=== PATIENT | female | born 1990 | race Caucasian/White ===

== ENCOUNTER → 2024-12-18 13:57 | Outpatient (REF) | payer BC, SELFPAY | LOC: PNTC 13:57 | PROVIDERS: ATTENDING PHYSICIAN Obstetrics & Gynecology | DX: O09.529 Supervision of elderly multigravida, unspecified trimester (principal); O34.219 Maternal care for unspecified type scar from previous cesarean delivery; Z36.0 Encounter for antenatal screening for chromosomal anomalies; Z36.82 Encounter for antenatal screening for nuchal translucency | CPT/HCPCS: 36415; 76801; 76813 ==

== ENCOUNTER → 2025-02-17 07:57 | Outpatient (REF) | payer BC, SELFPAY | LOC: PNTC 07:57 | PROVIDERS: ATTENDING PHYSICIAN Obstetrics & Gynecology | DX: O34.211 Maternal care for low transverse scar from previous cesarean delivery (principal); O09.529 Supervision of elderly multigravida, unspecified trimester | CPT/HCPCS: 76811; 76817 ==

== ENCOUNTER → 2025-03-24 16:16 | Outpatient (REF) | payer BC, SELFPAY ==
[2025-03-24 17:26] LABS: % Basophils 0.2 % (0-2); % Eosinophils 0.3 % (0-6); % Immature Granulocytes 0.7 % (0-0.5); % Lymphocytes 20.5 % (20.5-51.1); % Monocytes 6.2 % (1.7-9.3); % Neutrophils 72.1 % (42.2-75.2); Absolute Immature Granulocytes 0.1 10^3/uL (0-0.05); Absolute Monocytes 0.6 10^3/uL (0.1-0.6); Absolute Neutrophils 7.1 10^3/uL (1.4-6.5); Hematocrit 34.4 % (37.0-47.0); Hemoglobin 11.8 g/dL (12.0-16.0); Mean Corp Hgb Conc. 34.3 g/dL (33.0-37.0); Mean Corpuscular Hgb 29.6 pg (27.0-31.0); Mean Corpuscular Volume 86.2 fL (81.0-99.0); Mean Platelet Volume 9.3 fL (7.4-10.4); Nucleated Red Blood Cells % 0 %; Platelet Count 245 10^3/uL (130-400); Red Blood Cell Count 3.99 10^6/uL (4.20-5.40); White Blood Cell Count 9.8 10^3/uL (4.8-10.8)
== END ==
LOC: PNTC 16:16
PROVIDERS: ATTENDING PHYSICIAN Obstetrics & Gynecology; REFERRING PHYSICIAN Obstetrics & Gynecology
DX: O34.211 Maternal care for low transverse scar from previous cesarean delivery (principal); O09.529 Supervision of elderly multigravida, unspecified trimester; Z34.82 Encounter for supervision of other normal pregnancy, second trimester
CPT/HCPCS: 36415; 76816; 85025; 86780

== ENCOUNTER → 2025-04-09 10:25 | Outpatient (REF) | payer BC, SELFPAY ==
--- NOTE | 2025-04-07 10:33 | PN.DIAED06 ---
Meal Plan - Gestational
- Breakfast
Gestational Diabetes Meal Plan Name: 2000 calories
Breakfast - Total Carbohydrate (grams): 45 (1 serving carb = 15 g)
Breakfast - Starch Carbohydrate: 2 (carbs = starch, milk, fruit, juice)
Breakfast - Fruit Carbohydrate: 0 (no fruit or juice before noon)
Breakfast - Milk Carbohydrate: 1
Breakfast - Nonstarchy Vegetables: Yes
Breakfast - Meat/Protein: 1 (1 serving protein = 1 ounce = 7 grams)
Breakfast - Fat: 2 (1 serving fat = 5 grams)
- Morning Snack
Morning Snack - Total Carbohydrate (grams): 30
Morning Snack - Starch Carbohydrate: 1
Morning Snack - Fruit Carbohydrate: 0 (no fruit or juice before noon)
Morning Snack - Milk Carbohydrate: 1
Morning Snack - Nonstarchy Vegetables: Yes
Morning Snack - Meat/Protein: 0
Morning Snack - Fat: 0
- Lunch
Lunch - Total Carbohydrate (grams): 45
Lunch - Starch Carbohydrate: 1
Lunch - Fruit Carbohydrate: 1
Lunch - Milk Carbohydrate: 1
Lunch - Nonstarchy Vegetables: Yes
Lunch - Meat/Protein: 2
Lunch - Fat: 2
- Afternoon Snack
Afternoon Snack - Total Carbohydrate (grams): 30
Afternoon Snack - Starch Carbohydrate: 1
Afternoon Snack - Fruit Carbohydrate: 1
Afternoon Snack - Milk Carbohydrate: 0
Afternoon Snack - Nonstarchy Vegetables: Yes
Afternoon Snack - Meat/Protein: 1
Afternoon Snack - Fat: 0
- Dinner
Dinner - Total Carbohydrate (grams): 45
Dinner - Starch Carbohydrate: 2
Dinner - Fruit Carbohydrate: 1
Dinner - Milk Carbohydrate: 0
Dinner - Nonstarchy Vegetables: Yes
Dinner - Meat/Protein: 2
Dinner - Fat: 2
- Evening Snack
Evening Snack - Total Carbohydrate (grams): 45
Evening Snack - Starch Carbohydrate: 1
Evening Snack - Fruit Carbohydrate: 1
Evening Snack - Milk Carbohydrate: 1
Evening Snack - Nonstarchy Vegetables: Yes
Evening Snack - Meat/Protein: 1
Evening Snack - Fat: 0
--- NOTE | 2025-04-09 09:56 | PN.DE ---
Diabetes Education
- -
GESTATIONAL DIABETES EDUCATION CONSULT
Met with Betzy today for medical nutrition therapy. Currently at 27 weeks and 4 days gestation, with an JERMAINE of 06/25/2025.
Betzy had GSD with previous , was able to keep glucose numbers WNL with dietary interventions. She was not prescribed medications.
Explained glucose metabolism in body and what occurs during to cause increase blood sugar. Discussed importance of keeping BS well controlled to avoid complications to the baby during and after (macrosomia, hypoglycemia). Discussed
macronutrients, provided with 2000 thiago GDM meal plan. She reviewed current glucose numbers and meals, most numbers were within parameters. Reviewed outliers related to excess carbohydrates and fried foods.
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 Discussed importance of activity in reducing glucose values. She verbalized understandgin.
Betzy presented to the appointment with a OneTouch Verio glucometer. She has supplies and is proficient in checking glucose values. Declined demonstration. She is aware to test FBS and 2 hr pp each meal. Expected results for FBS <95 mg/dl
and 2 hr pp <120 mg/dl. Log sheet provided for her to record results, she will send a 4-day meal log with all her FBG and 2hr Post prandial glucose numbers to this office for review. In addition, she will send all her glucose readings [place]
every Sunday.
She was encouraged to reach out should she require insulin.
== END ==
LOC: DES 10:25
PROVIDERS: ATTENDING PHYSICIAN Obstetrics & Gynecology
DX: O24.419 Gestational diabetes mellitus in pregnancy, unspecified control (principal)
CPT/HCPCS: 99078

== ENCOUNTER → 2025-04-30 08:57 | Outpatient (REF) | payer BC, SELFPAY | LOC: PNTC 08:57 | PROVIDERS: ATTENDING PHYSICIAN Obstetrics & Gynecology | DX: O09.529 Supervision of elderly multigravida, unspecified trimester (principal); O34.219 Maternal care for unspecified type scar from previous cesarean delivery | CPT/HCPCS: 76816 ==

== ENCOUNTER → 2025-05-28 09:04 | Outpatient (REF) | payer BC, SELFPAY | LOC: PNTC 09:04 | PROVIDERS: ATTENDING PHYSICIAN Obstetrics & Gynecology | DX: O09.529 Supervision of elderly multigravida, unspecified trimester (principal); O24.419 Gestational diabetes mellitus in pregnancy, unspecified control | CPT/HCPCS: 59025; 76816 ==

== ENCOUNTER → 2025-06-04 09:06 | Outpatient (REF) | payer BC, SELFPAY | LOC: PNTC 09:06 | PROVIDERS: ATTENDING PHYSICIAN Obstetrics & Gynecology | DX: O09.529 Supervision of elderly multigravida, unspecified trimester (principal); O24.419 Gestational diabetes mellitus in pregnancy, unspecified control | CPT/HCPCS: 59025; 76815 ==

== ENCOUNTER → 2025-06-11 10:23 | Outpatient (REF) | payer BC, SELFPAY | LOC: PNTC 10:23 | PROVIDERS: ATTENDING PHYSICIAN Obstetrics & Gynecology | DX: O09.523 Supervision of elderly multigravida, third trimester (principal); O24.410 Gestational diabetes mellitus in pregnancy, diet controlled | CPT/HCPCS: 59025; 76815 ==

== ENCOUNTER → 2025-06-18 08:31 | Outpatient (REF) | payer BC, SELFPAY | LOC: PNTC 08:31 | PROVIDERS: ATTENDING PHYSICIAN Obstetrics & Gynecology | DX: O09.523 Supervision of elderly multigravida, third trimester (principal); O24.410 Gestational diabetes mellitus in pregnancy, diet controlled | CPT/HCPCS: 59025; 76815 ==

== ENCOUNTER → 2025-06-25 09:03 | Outpatient (REF) | payer BC, SELFPAY | LOC: PNTC 09:03 | PROVIDERS: ATTENDING PHYSICIAN Obstetrics & Gynecology | DX: O09.523 Supervision of elderly multigravida, third trimester (principal); O24.410 Gestational diabetes mellitus in pregnancy, diet controlled | CPT/HCPCS: 59025; 76816 ==

== ENCOUNTER 2025-07-01 20:18 | Inpatient (IN) | payer BC, SELFPAY ==
[2025-07-01 20:26] VITALS: BMI 28.3
[2025-07-01 20:49] VITALS: BP 124/85
[2025-07-02] MEDS: STADOL 1 MG IV ×2 (02:34→06:50)
[2025-07-02] MEDS: LR 1000 IV ×3 (02:43→11:35)
[2025-07-02 03:24] LABS: Glucose - Point of Care 97 mg/dl (70-99)
[2025-07-02 03:27] LABS: Hematocrit 39.8 % (37.0-47.0); Hemoglobin 13.6 g/dL (12.0-16.0); Mean Corp Hgb Conc. 34.2 g/dL (33.0-37.0); Mean Corpuscular Volume 85.6 fL (81.0-99.0); Nucleated Red Blood Cells % 0 %; Platelet Count 241 10^3/uL (130-400); Red Cell Dist. Width 12.7 % (11.5-14.5)
[2025-07-02] MEDS: PENICILLIN 110 UNITS IV (03:34)
[2025-07-02] MEDS: LR IV (04:52)
[2025-07-02 07:34] LABS: Glucose - Point of Care 87 mg/dl (70-99)
[2025-07-02] MEDS: PENICILLIN 55 UNITS IV ×3 (07:48→15:11)
[2025-07-02] MEDS: SUBLIMAZE 100 MCG EPIDURAL (09:37)
[2025-07-02] MEDS: FENTANYL/BUPIVACAINE 100 EPIDURAL (09:38)
[2025-07-02 11:33] LABS: Glucose - Point of Care 81 mg/dl (70-99)
[2025-07-02] MEDS: ZOFRAN 4 MG IV (11:43)
[2025-07-02 15:15] LABS: Glucose - Point of Care 94 mg/dl (70-99)
[2025-07-02] MEDS: TYLENOL 650 MG PO (20:30)
[2025-07-02] MEDS: COLACE 100 MG PO (20:30)
[2025-07-02] MEDS: MOTRIN 600 MG PO (20:30)
[2025-07-03] MEDS: MOTRIN 600 MG PO ×4 (03:48→22:27)
[2025-07-03] MEDS: TYLENOL 650 MG PO ×4 (03:48→22:27)
[2025-07-03 04:30] LABS: Hematocrit 32.4 % (37.0-47.0); Hemoglobin 11.5 g/dL (12.0-16.0)
[2025-07-03] MEDS: COLACE 100 MG PO ×2 (07:49→20:25)
[2025-07-03] MEDS: PRENATAL PLUS 1 TABLET PO (07:49)
[2025-07-03 13:03] LABS: Syphilis/T. pallidum Ab Reflex Negative (Negative)
[2025-07-04] MEDS: MOTRIN 600 MG PO ×2 (04:42→10:43)
[2025-07-04] MEDS: TYLENOL 650 MG PO ×2 (04:42→10:43)
[2025-07-04] MEDS: PRENATAL PLUS 1 TABLET PO (08:13)
[2025-07-04] MEDS: COLACE 100 MG PO (08:13)
== END 2025-07-04 12:53 | disposition home or self-care (01) | DRG 807 ==
LOC: LDRP 20:18
PROVIDERS: Student in an Organized Health Care Education/Training Program; ADMITTING PHYSICIAN Obstetrics & Gynecology; FAMILY PHYSICIAN Physician Assistant Medical
PROC: 10907ZC Drainage of Amniotic Fluid, Therapeutic from Products of Conception, Via Natural or Artificial Opening (ICD-10-PCS; 2025-07-02)
PROC: 0KQM0ZZ Repair Perineum Muscle, Open Approach (ICD-10-PCS; 2025-07-02)
PROC: 0UQMXZZ Repair Vulva, External Approach (ICD-10-PCS; 2025-07-02)
PROC: 10E0XZZ Delivery of Products of Conception, External Approach (ICD-10-PCS; 2025-07-02)
DX: O99.824 Streptococcus B carrier state complicating childbirth (principal); Z37.0 Single live birth; Z3A.39 39 weeks gestation of pregnancy; O69.81X0 Labor and delivery complicated by cord around neck, without compression, not applicable or unspecified; O70.1 Second degree perineal laceration during delivery; O71.82 Other specified trauma to perineum and vulva
CPT/HCPCS: 36415; 82962; 85014; 85018; 85025; 86780; 86850; 86900; 86901